=== PATIENT | female | born 1975 | race Caucasian/White ===

== ENCOUNTER 2022-06-01 19:50 | Outpatient (CLI) | payer OTHER, SELFPAY ==
--- NOTE | 2022-06-12 14:11 | W.PM.SLEEP ---
Sleep Study Details Details Interpreting Provider: Agustin Arreaga MD Date of Sleep Study: 06/01/22 Sleep Study Details: STUDY TYPE:? Home ? BMI:? 32.3 ORDERING PROVIDER:Kim Shabazz INDICATION:? Concerns about sleep apnea ? SLEEP SUMMARY:? 446 minutes monitored RESPIRATORY SUMMARY:? AHI 6.1, supine 6.1, left lateral 5.1, right lateral 7 Low oxygen 86 Snoring 1.1% PERIODIC LIMB MOVEMENTS OF SLEEP:? Not recorded CARDIAC:? Range 55-101, mean 69.8 IMPRESSION:? Mild obstructive sleep apnea. If the patient is symptomatic treatment options could consist of either CPAP, AutoSet 4-17, versus dental appliance versus airway expansion surgery RECOMMENDATION: []
== END 2022-06-01 19:51 | disposition home or self-care (01) ==
LOC: SLEEP 19:50
PROVIDERS: PCP Family Medicine; Visit Provider Family Medicine
DX: G47.33 Obstructive sleep apnea (adult) (pediatric) (principal)
CPT/HCPCS: 95806